=== PATIENT | female | born 1985 | race Caucasian/White ===

== ENCOUNTER 2018-01-05 01:24 | Inpatient (IN) | payer OTHER, MEDICAID ==
[~2018-01-05] VITALS: Ht 160 cm; Wt 63.0 kg
[~2018-01-05 01:24] MED LIST: IBUP-1222 PO; NIFE30TA2 PO; OXYC-302 PO
[2018-01-05] MEDS ORDERED: D5%-LACTATED RINGERS 1,000 ML IV SCH (01:29)
[2018-01-05] MEDS ORDERED: LACTATED RINGERS 1,000 ML IV SCH (01:29)
[2018-01-05] MEDS ORDERED: OXYTOCIN 30U/ 0.9% NaCL 500ML 500 ML IV ONE (01:29)
[2018-01-05 01:30] VITALS: BP 136/90
[2018-01-05] MEDS ORDERED: FENTANYL PF 100 MCG/2ML IV PRN (01:30)
[2018-01-05] MEDS ORDERED: CALCIUM CARBONATE 500 MG TAB.CHEW PO PRN ×2 (01:30→03:30)
[2018-01-05] MEDS ORDERED: FENTANYL PF 100 MCG/2ML IVPush PRN (01:30)
[2018-01-05] MEDS ORDERED: ONDANSETRON 2MG/ML, 2ML IVPush PRN (01:30)
[2018-01-05] MEDS ORDERED: MISOPROSTOL 200 MCG TABLET ONE (01:41)
[2018-01-05] MEDS ORDERED: OXYTOCIN 30U/ 0.9% NaCL 500ML 500 ML ONE ×2 (01:41→03:39)
[2018-01-05] MEDS ORDERED: NEWBORN KIT ONE (01:41)
[2018-01-05 02:14] LABS: BASOPHILS # (AUTO) 0.03 x10^3/uL (0-0.1); BASOPHILS % (AUTO) 0 % (0-1); EOSINOPHILS # (AUTO) 0.01 x10^3/uL (0-0.4); EOSINOPHILS % (AUTO) 0 % (1-7); LYMPHOCYTES % (AUTO) 30 % (22-44); MD NO; MEAN CORPUSCULAR HGB CONC 33.8 g/dL (32.4-35.8); MEAN CORPUSCULAR VOLUME 88.6 fL (80-100); MEAN PLATELET VOLUME 10.3 fL (7.4-10.4); MONOCYTES # (AUTO) 0.63 x10^3/uL (0.2-0.8); MONOCYTES % (AUTO) 6 % (2-9); NEUTROPHILS # (AUTO) 6.95 x10^3/uL (1.8-6.8); NEUTROPHILS % (AUTO) 64 % (42-75); PLATELET COUNT 195 x10^3/uL (130-400); RED CELL DISTRIBUTION WIDTH 12.9 % (9.6-15.2)
[2018-01-05] MEDS ORDERED: FENTANYL PF 100 MCG/2ML ONE (02:15)
[2018-01-05 02:32] LABS: ALANINE AMINOTRANSFERASE 13 U/L (12-78); ALBUMIN 2.6 g/dL (3.4-5.0); ANION GAP 10 mmol/L (5-15); BILIRUBIN, DIRECT 0.1 mg/dL (0.1-0.2); CALCIUM 8.3 mg/dL (8.5-10.1); CHLORIDE 108 mmol/L (98-107); CREATININE 0.87 mg/dL (0.55-1.02)
[2018-01-05 02:34] LABS: ALKALINE PHOSPHATASE 188 U/L (45-117); BILIRUBIN,TOTAL 0.5 mg/dL (0.2-1.0); TOTAL PROTEIN 7.1 g/dL (6.4-8.2)
[2018-01-05] MEDS: OXYTOCIN 30U/ 0.9% NaCL 500ML 500 ML IV SCH ×5 (03:15→23:15)
[2018-01-05] MEDS ORDERED: ONDANSETRON 2MG/ML, 2ML IV PRN (03:30)
[2018-01-05] MEDS ORDERED: BISACODYL 10 MG SUPP PR PRN (03:30)
[2018-01-05] MEDS ORDERED: MISOPROSTOL 200 MCG TABLET PR PRN (03:30)
[2018-01-05] MEDS ORDERED: ACETAMINOPHEN 325 MG TABLET PO PRN ×2 (03:30)
[2018-01-05] MEDS ORDERED: DOCUSATE 100 MG CAPSULE PO PRN (03:30)
[2018-01-05] MEDS ORDERED: HYDROcodone/APAP 5/325 TABLET PO PRN ×2 (03:30)
[2018-01-05] MEDS ORDERED: OXYcodone/APAP 5/325MG TABLET ONE (03:39)
[2018-01-05] MEDS ORDERED: IBUPROFEN 600 MG TABLET ONE (03:39)
[2018-01-05] MEDS: IBUPROFEN 600 MG TABLET PO PRN ×2 (04:05→16:33)
[2018-01-05 05:05] VITALS: BP 116/94
[2018-01-05 07:45] VITALS: BP 115/70
[2018-01-05] MEDS: CEPHALEXIN 500 MG CAPSULE HOMEMEDPO SCH ×4 (08:00→21:00)
[2018-01-05] MEDS: PRENATAL VIT/IRON/FA 1 EACH TABLET PO SCH (09:00)
[2018-01-05 11:08] LABS: BASOPHILS # (AUTO) 0.16 x10^3/uL (0-0.1); BASOPHILS % (AUTO) 1 % (0-1); EOSINOPHILS % (AUTO) 0 % (1-7); LYMPHOCYTES # (AUTO) 2.86 x10^3/uL (1-3.4); LYMPHOCYTES % (AUTO) 21 % (22-44); MD NO; MEAN CORPUSCULAR HEMOGLOBIN 30.6 pg (27.0-34.8); MEAN CORPUSCULAR HGB CONC 34.5 g/dL (32.4-35.8); MEAN CORPUSCULAR VOLUME 88.7 fL (80-100); MONOCYTES # (AUTO) 0.53 x10^3/uL (0.2-0.8); MONOCYTES % (AUTO) 4 % (2-9); NEUTROPHILS # (AUTO) 10.43 x10^3/uL (1.8-6.8); NEUTROPHILS % (AUTO) 75 % (42-75); PLATELET COUNT 185 x10^3/uL (130-400); RED BLOOD COUNT 4.09 x10^6/uL (3.82-5.3); RED CELL DISTRIBUTION WIDTH 12.7 % (9.6-15.2)
[2018-01-05 12:00] VITALS: BP 120/79
[2018-01-05 12:36] LABS: MICROSCOPIC AUTO
[2018-01-05 12:45] LABS: CREATININE,URINE RANDOM 30.9 mg/dL
[2018-01-05 16:00] VITALS: BP 141/87
[2018-01-05 20:35] VITALS: BP 138/88
[2018-01-06 01:22] VITALS: BP 139/83
[2018-01-06] MEDS: IBUPROFEN 600 MG TABLET PO PRN (01:27)
[2018-01-06] MEDS: CEPHALEXIN 500 MG CAPSULE HOMEMEDPO SCH ×2 (06:00→11:00)
[2018-01-06 07:40] VITALS: BP 127/83
[2018-01-06] MEDS: PRENATAL VIT/IRON/FA 1 EACH TABLET PO SCH (09:00)
[2018-01-06] MEDS: OXYTOCIN 30U/ 0.9% NaCL 500ML 500 ML IV SCH (09:15)
[2018-01-06] MEDS ORDERED: DOCU-131 PO (13:23)
== END 2018-01-06 16:30 | disposition home or self-care (01) | DRG 775 ==
LOC: LDOP 01:24 → LDIP 01:35 → 2NW 04:45
PROVIDERS: ADMIT Obstetrics & Gynecology; ATTEND Obstetrics & Gynecology
PROC: 10E0XZZ Delivery of Products of Conception, External Approach (ICD-10-PCS; principal; 2018-01-05)
DX: O80 Encounter for full-term uncomplicated delivery (principal); Z37.0 Single live birth; Z83.42 Family history of familial hypercholesterolemia; Z3A.39 39 weeks gestation of pregnancy; Z82.3 Family history of stroke
CPT/HCPCS: 36415; 80053; 81001; 82248; 82570; 84156; 84550; 85025; 86850; 86900; J3010; J2590

== ENCOUNTER → 2018-08-02 | Outpatient (CLI) | payer BC, MEDICAID ==
[~2018-08-02] MED LIST changes: +DOCU-131 PO; +PREN1TAB60 PO
[2018-08-02 16:01] LABS: MICROSCOPIC AUTO
[2018-08-02 16:03] LABS: BASOPHILS # (AUTO) 0.03 x10^3/uL (0-0.1); BASOPHILS % (AUTO) 0 % (0-1); EOSINOPHILS # (AUTO) 0.11 x10^3/uL (0-0.4); EOSINOPHILS % (AUTO) 1 % (1-7); LYMPHOCYTES # (AUTO) 2.62 x10^3/uL (1-3.4); LYMPHOCYTES % (AUTO) 31 % (22-44); MD NO; MEAN CORPUSCULAR HEMOGLOBIN 28.3 pg (27.0-34.8); MEAN CORPUSCULAR HGB CONC 33.6 g/dL (32.4-35.8); MEAN CORPUSCULAR VOLUME 84.3 fL (80-100); MEAN PLATELET VOLUME 8.4 fL (7.4-10.4); MONOCYTES # (AUTO) 0.46 x10^3/uL (0.2-0.8); MONOCYTES % (AUTO) 6 % (2-9); NEUTROPHILS # (AUTO) 5.15 x10^3/uL (1.8-6.8); NEUTROPHILS % (AUTO) 62 % (42-75); PLATELET COUNT 352 x10^3/uL (130-400); RED BLOOD COUNT 4.79 x10^6/uL (3.82-5.3); RED CELL DISTRIBUTION WIDTH 12.6 % (9.6-15.2)
[2018-08-02 16:05] LABS: CULTURE INDICATED? YES
[2018-08-02 16:29] LABS: ALBUMIN 3.9 g/dL (3.4-5.0); ANION GAP 8 mmol/L (5-15); CALCIUM 9.2 mg/dL (8.5-10.1); CHLORIDE 108 mmol/L (98-107)
[2018-08-02 16:34] LABS: ALANINE AMINOTRANSFERASE 24 U/L (12-78); ALKALINE PHOSPHATASE 83 U/L (45-117); BILIRUBIN,TOTAL 0.3 mg/dL (0.2-1.0); CREATININE 1.18 mg/dL (0.55-1.02); TOTAL PROTEIN 8.4 g/dL (6.4-8.2)
== END | disposition home or self-care (01) ==
LOC: STAR 15:06
PROVIDERS: ATTEND Obstetrics & Gynecology
DX: Z30.2 Encounter for sterilization (principal)
CPT/HCPCS: 36415; 80053; 81001; 84702; 85025; 87086

== ENCOUNTER 2018-08-11 05:46 | Day surgery (SDC) | payer BC, MEDICAID ==
[2018-08-02 15:55] VITALS: BP 128/83
[~2018-08-11] VITALS: Ht 157.5 cm; Wt 56.0 kg
[2018-08-11] MEDS ORDERED: LACTATED RINGERS 1,000 ML IV SCH (06:38)
[2018-08-11] MEDS ORDERED: BUPIVACAINE/PF 0.25% ONE (06:56)
[2018-08-11] MEDS ORDERED: EPINEPHRINE 1 MG/ML, 1ML ONE (06:56)
[2018-08-11] MEDS ORDERED: SILVER NITRATE STICK TP ONE (06:56)
[2018-08-11] MEDS ORDERED: FENTANYL PF 100 MCG/2ML ONE ×2 (07:21→09:01)
[2018-08-11] MEDS ORDERED: MIDAZOLAM 1 MG/ML, 2ML ONE (07:21)
[2018-08-11 07:30] LABS: HCG UR SG 1.016 (1.003-1.030)
[2018-08-11] MEDS ORDERED: DIAZEPAM 5 MG/ML, 2ML IVPush PRN (08:30)
[2018-08-11] MEDS ORDERED: HYDROmorphone 2 MG/ML, 1ML IVPush PRN (08:30)
[2018-08-11] MEDS ORDERED: LABETALOL 5MG/ML, 20ML IV PRN (08:30)
[2018-08-11] MEDS ORDERED: hydrALAzine 20 MG/ML, 1ML IV PRN (08:30)
[2018-08-11] MEDS ORDERED: PROMETHAZINE 25 MG/ML, 1ML IV PRN (08:30)
[2018-08-11] MEDS ORDERED: MEPERIDINE/PF 25MG/0.5ML IVPush PRN (08:30)
[2018-08-11] MEDS ORDERED: ACETAMINOPHEN 325 MG TABLET PO PRN (08:30)
[2018-08-11] MEDS ORDERED: ALBUTEROL SULFATE 2.5 MG/3 ML NPPB PRN (08:30)
[2018-08-11] MEDS ORDERED: OXYcodone 5 MG/5 ML ORAL.SOL UDC ONE ×2 (09:01→09:41)
[2018-08-11] MEDS ORDERED: ACETAMINOPHEN 650 MG/20.3 ML UDC ONE (09:01)
[2018-08-11] MEDS: OXYcodone 5 MG/5 ML ORAL.SOL UDC PO PRN ×2 (09:09→09:41)
[2018-08-11] MEDS: FENTANYL PF 100 MCG/2ML IV PRN ×3 (09:12→09:30)
[2018-08-11] MEDS ORDERED: PROMETHAZINE 12.5 MG SUPP PR ONE ×2 (12:10→14:17)
[2018-08-11] MEDS: PROMETHAZINE 25 MG SUPP PR PRN ×2 (12:18→14:31)
[2018-08-11] MEDS ORDERED: KETOROLAC 30 MG/1 ML ONE (13:13)
[2018-08-11] MEDS ORDERED: KETOROLAC 30 MG/1 ML IVPush SCH (13:30)
[2018-08-11] MEDS ORDERED: KETOROLAC 30 MG/1 ML IM SCH (13:30)
[2018-08-11] MEDS ORDERED: CEFAZOLIN 1,000 MG ONE (14:41)
[2018-08-11] MEDS ORDERED: PROPOFOL 10 MG/ML, 100ML IV ONE (14:41)
[2018-08-11] MEDS ORDERED: ONDANSETRON 2MG/ML, 2ML ONE (14:41)
[2018-08-11] MEDS ORDERED: DEXAMETHASONE 4 MG/ML, 1ML ONE (14:41)
[2018-08-11] MEDS ORDERED: PROPOFOL 10 MG/ML, 20ML ONE (14:41)
[2018-08-11] MEDS ORDERED: SUCCINYLCHOLINE 20 MG/ML, 10ML ONE (14:41)
[2018-08-11] MEDS ORDERED: PROPOFOL 10 MG/ML, 50ML ONE (14:42)
== END 2018-08-11 14:56 | disposition home or self-care (01) ==
LOC: OUT 05:46
PROVIDERS: ATTEND Obstetrics & Gynecology
DX: Z30.2 Encounter for sterilization (principal); I10 Essential (primary) hypertension
CPT/HCPCS: 36415; 58670; 81025; 86850; 86900; 88302; J0171; J0330; J0690; J1100; J1885; J2250; J2405; J2704; J3010; J3490; J7120

== ENCOUNTER 2018-08-18 13:08 | Emergency (ER) | payer BC, MEDICAID ==
[~2018-08-18] VITALS: Ht 157.5 cm; Wt 57.2 kg
[2018-08-18 13:22] VITALS: BP 112/73
[2018-08-18] MEDS ORDERED: FAMOTIDINE 20 MG TABLET ONE (13:40)
[2018-08-18] MEDS ORDERED: FAMOTIDINE 20 MG TABLET PO ONE (14:00)
== END 2018-08-18 14:14 | disposition home or self-care (01) ==
LOC: ED 13:32
DX: L23.9 Allergic contact dermatitis, unspecified cause (principal)
CPT/HCPCS: 99284; J7512; Q0177